=== PATIENT | male | born 1985 | race Caucasian/White ===

== ENCOUNTER 2016-07-12 20:52 | Emergency (ER) | payer SELFPAY ==
[~2016-07-12] VITALS: Ht 170.2 cm; Wt 80.0 kg
[~2016-07-12 20:52] MED LIST: AMOXICILLIN500 MG PO; BENADRYL 50MG C50 MG OR; CEPHALEXIN500 M1 PO; FLEXERIL PO; MEDDOSEPAK OR; NAPROSYN500 MG PO; NIZORAL A-D1 % EX; ULTRAM50 M1 PO; ULTRAM50 MG OR; ULTRAM50 MG PO; VISTARIL25 MG OR
[2016-07-12] MEDS ORDERED: NAPROSYN500 MG PO (23:06)
[2016-07-12] MEDS ORDERED: PENICILLN VK500 MG PO (23:06)
[2016-07-12 23:27] VITALS: BP 120/78
== END 2016-07-12 23:27 | disposition home or self-care (01) | DRG 159 ==
LOC: ED 20:52
DX: K08.89 Other specified disorders of teeth and supporting structures (principal); K04.7 Periapical abscess without sinus

== ENCOUNTER 2017-09-26 23:46 | Emergency (ER) | payer SELFPAY ==
[~2017-09-26] VITALS: Ht 170.2 cm; Wt 66.8 kg
[~2017-09-26 23:46] MED LIST changes: +PENICILLN VK500 MG PO
[2017-09-27] MEDS ORDERED: LORTAB 1010 MG PO (01:37)
[2017-09-27] MEDS ORDERED: AMOXICILLIN500 MG PO (01:37)
[2017-09-27 02:15] VITALS: BP 130/79
== END 2017-09-27 02:17 | disposition home or self-care (01) | DRG 159 ==
LOC: ED 23:46
DX: K04.7 Periapical abscess without sinus (principal); K03.81 Cracked tooth; F17.210 Nicotine dependence, cigarettes, uncomplicated

== ENCOUNTER 2018-03-31 19:13 | Emergency (ER) | payer SELFPAY ==
[~2018-03-31] VITALS: Ht 175.3 cm; Wt 61.0 kg
[~2018-03-31 19:13] MED LIST changes: +LORTAB 1010 MG PO
[2018-03-31 19:51] LABS: HEMATOCRIT 38.3 % (39.0-50.0); HEMOGLOBIN 12.9 g/dl (14.0-18.0); IMMATURE GRANULOCYTES 0.3 % (0.0-5.0); MEAN CORPUSCULAR HGB 31.9 pG CALC (26.0-32.0); MEAN CORPUSCULAR HGB CONC 33.7 g/L CALC (32.0-36.0); NEUT# 4.52 thou/uL (1.82-7.42); RED BLOOD COUNT 4.05 mill/uL (4.70-6.10); RED CELL DISTRI WIDTH 13.1 % (11.5-15.5)
[2018-03-31 19:53] LABS: MEAN CELL VOLUME 94.6 fL CALC (80.0-100.0)
[2018-03-31 19:53] LABS: BARBITURATES NEGATIVE (NEGATIVE); COCAINE NEGATIVE (NEGATIVE); METHADONE NEGATIVE (NEGATIVE); OXCYCODONE NEGATIVE (NEGATIVE); TETRAHYDROCANNABIONOL NEGATIVE (NEGATIVE); TRICYLIC ANTIDEPRESSANTS NEGATIVE (NEGATIVE); URINE BILIRUBIN - DIPSTICK NEGATIVE (NEGATIVE); URINE BLOOD DIPSTICK TRACE-INTACT (NEGATIVE); URINE COLOR YELLOW; URINE GLUCOSE - DIPSTICK NEGATIVE (NEGATIVE); URINE KETONE NEGATIVE (NEGATIVE); URINE LEUK ESTERASE NEGATIVE (NEGATIVE); URINE NITRITE - DIPSTICK NEGATIVE (Negative); URINE PROTEIN - DIPSTICK NEGATIVE (NEG-TRACE); URINE SPECIFIC GRAVITY <=1.005; URINE UROBILINOGEN - DIPSTICK 0.2 E.U./dL (0.2)
[2018-03-31 20:04] LABS: ALKALINE PHOSPHATASE 58 u/l (38-126); ANION GAP 13 (6-22 (CALC)); BILIRUBIN, TOTAL 0.4 mg/dL (0.0-1.4); BUN 12 mg/dL (9-20); BUN/CREATININE RATIO 12 (12-20 (CALC)); CARBON DIOXIDE 23 mmol/l (22-30); CHLORIDE 109 mmol/l (95-108); GFR > 60 ML/MIN (>=60 (CALC)); GFR FOR AFR.AMER. > 60 ML/MIN (>=60 (CALC)); POTASSIUM 3.5 mmol/l (3.5-5.1); SGOT/AST 26 u/l (17-59); SODIUM 142 mmol/l (137-146); TOTAL PROTEIN 7.2 g/dL (6.3-8.2)
[2018-03-31 20:16] LABS: MYOGLOBIN 101 ng/mL (0 - 121)
[2018-03-31 20:44] VITALS: BP 115/63
== END 2018-03-31 20:55 | disposition home or self-care (01) | DRG 313 ==
LOC: ED 19:13
PROVIDERS: Emergency Medicine
DX: R07.89 Other chest pain (principal); F17.200 Nicotine dependence, unspecified, uncomplicated

== ENCOUNTER 2019-09-12 10:57 | Emergency (ER) | payer OTHER ==
[~2019-09-12] VITALS: Ht 175.3 cm; Wt 84.0 kg
[2019-09-12 13:12] VITALS: BP 113/72
== END 2019-09-12 13:18 | disposition home or self-care (01) | DRG 87 ==
LOC: ED 10:57
DX: S06.9X1A Unspecified intracranial injury with loss of consciousness of 30 minutes or less, initial encounter (principal); S00.81XA Abrasion of other part of head, initial encounter; F17.210 Nicotine dependence, cigarettes, uncomplicated; W22.8XXA Striking against or struck by other objects, initial encounter; Y93.89 Activity, other specified; Y92.89 Other specified places as the place of occurrence of the external cause; Y99.0 Civilian activity done for income or pay

== ENCOUNTER 2022-03-30 12:31 | Emergency (ER) | payer SELFPAY ==
[~2022-03-30] VITALS: Ht 175.3 cm; Wt 61.0 kg
[2022-03-30] MEDS ORDERED: PENICILLN VK500 MG PO ×2 (14:11→14:45)
[2022-03-30 14:18] VITALS: BP 116/70
== END 2022-03-30 14:37 | disposition home or self-care (01) | DRG 159 ==
LOC: ED 12:31
DX: K04.7 Periapical abscess without sinus (principal)